=== PATIENT | male | born 1970 | race Caucasian/White ===

== ENCOUNTER → 2019-01-07 | Outpatient (CLI) | payer OTHER ==
[~2019-01-07] MED LIST: CEPHALEXIN500 M1 PO
== END ==
LOC: COL.RAD 01-06 08:00
DX: J32.0 Chronic maxillary sinusitis (principal); H02.401 Unspecified ptosis of right eyelid
CPT/HCPCS: A9585

== ENCOUNTER 2021-11-19 17:58 | Emergency (ER) | payer OTHER ==
[~2021-11-19] VITALS: Ht 167.6 cm; Wt 62.3 kg
[2021-11-19 18:16] VITALS: BP 147/80; TEMP 98
[2021-11-19 19:50] VITALS: PULSE 55
== END 2021-11-19 19:45 | disposition home or self-care (01) ==
LOC: COL.ER 17:58
DX: M25.572 Pain in left ankle and joints of left foot (principal); M79.89 Other specified soft tissue disorders